=== PATIENT | female | born 1985 | race Caucasian/White ===

== ENCOUNTER 2019-07-14 16:26 | Inpatient (IN) | payer BC, MEDICAID ==
[~2019-07-14] VITALS: Ht 170.2 cm; Wt 66.3 kg
[2019-07-14] MEDS ORDERED: magnesium hydroxide 30ml (MOM) UD suspension PO PRN (23:25)
[2019-07-14] MEDS ORDERED: acetaminophen 325mg tablet PO PRN ×2 (23:25)
[2019-07-14] MEDS ORDERED: mag hydrox/Alum hydrox/simeth 30ml oral suspension PO PRN (23:25)
[2019-07-14] MEDS ORDERED: loperamide 2mg capsule PO PRN (23:25)
[2019-07-15] MEDS ORDERED: TEN1T PO (00:43)
[2019-07-15] MEDS ORDERED: GABA600T13 PO ×2 (00:43)
[2019-07-15] MEDS ORDERED: ESCI20TA PO (00:43)
[2019-07-15 01:41] VITALS: BP 126/91
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
[2019-07-15 08:15] VITALS: BP 100/52
[2019-07-15] MEDS: gabapentin 300mg capsule PO SCH (08:38)
[2019-07-15] MEDS: ESCITALOPRAM OXALATE 5 MG TABLET PO SCH (08:40)
[2019-07-15] MEDS: nicotine 21mg patch - 24 hr TD SCH (08:42)
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
[2019-07-15 20:00] VITALS: BP 118/61
[2019-07-15] MEDS ORDERED: prazosin 1mg capsule PO SCH (21:00)
[2019-07-15] MEDS ORDERED: guanFACINE 1 mg tablet PO SCH (21:00)
[2019-07-15] MEDS: gabapentin 400mg capsule PO SCH (21:14)
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
[2019-07-16] MEDS: LORazepam 1 MG tablet PO PRN ×2 (05:29→13:32)
[2019-07-16] MEDS: ESCITALOPRAM OXALATE 5 MG TABLET PO SCH (08:46)
[2019-07-16] MEDS: nicotine 21mg patch - 24 hr TD SCH (08:47)
[2019-07-16] MEDS: gabapentin 300mg capsule PO SCH (08:51)
[2019-07-16 10:00] LABS: BASOPHILS % (AUTO) 0.8 % (0-1); EOSINOPHILS # (AUTO) 0.1 X10'3 (0-0.9); EOSINOPHILS % (AUTO) 2.2 % (0-6); HEMOGLOBIN 9.2 g/dl (12.0-16.0); LYMPHOCYTES # (AUTO) 1.2 X10'3 (1.1-4.8); LYMPHOCYTES % (AUTO) 26.4 % (21-51); MEAN CORPUSCULAR HEMOGLOBIN 32.1 PG (27.0-31.0); MEAN CORPUSCULAR VOLUME 94.2 FL (78-98); MEAN PLATELET VOLUME 9.7 FL (7.4-10.4); MONOCYTES # (AUTO) 0.4 X10'3 (0-0.9); MONOCYTES % (AUTO) 8.9 % (2-12); NEUTROPHILS # (AUTO) 2.9 X10'3 (1.8-7.7); NEUTROPHILS % (AUTO) 61.7 % (42-75); PLATELET COUNT 216 X10'3 (140-440); RED BLOOD COUNT 2.87 X10'6 (4.20-5.60); RED CELL DISTRIBUTION WIDTH 13.2 % (11.5-14.5); WHITE BLOOD COUNT 4.7 X10'3 (4.5-11.0)
[2019-07-16 10:24] LABS: ALANINE AMINOTRANSFERASE 11 U/L (12-78); ALBUMIN 3.5 G/DL (3.4-5.0); ALBUMIN/GLOBULIN RATIO 1.1 (1.1-1.5); ALKALINE PHOSPHATASE 58 IU/L (46-116); ANION GAP 6 (8-16); ASPARTATE AMINO TRANSFERASE 8 U/L (10-37); BILIRUBIN,TOTAL 0.2 MG/DL (0.1-1.0); BLOOD UREA NITROGEN 17 MG/DL (7-18); CALCIUM 8.9 MG/DL (8.5-10.1); CHLORIDE 108 MMOL/L (99-107); CHOL/HDL RATIO 3.1 (0.00-4.99); CHOLESTEROL 141 MG/DL (0-200); CREATININE 0.85 MG/DL (0.40-0.90); GLUCOSE 100 MG/DL (70-104); HDL CHOLESTEROL 46 MG/DL (35-60); LDL CHOLESTEROL 86 MG/DL (50-100); POTASSIUM 3.9 MMOL/L (3.5-5.1); SODIUM 144 MMOL/L (135-145); TOTAL CARBON DIOXIDE 29.8 MMOL/L (24-32); TOTAL PROTEIN 6.8 G/DL (6.4-8.2); TRIGLYCERIDES 59 MG/DL (20-135); eGFR 76 ML/MIN
--- NOTE | 2019-07-16 14:36 | NUR ---
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 per request from treatment team. Provided psycho ed on trauma therapies available as well as emotional regulation resources. Plan= pt was open to meeting individually tomorrow. Continue to collaborate with treatment team and support pt. Lisa PERRY
--- NOTE | 2019-07-16 15:01 | NUR ---
Met with Ct to complete Psychosocial Assessment. Ct lives in [place] and has an apartment there. Galley Boy assisted Ct with using her phone to pay rent on-line yesterday. Ct is connected to a therapist at [facility]stance Use program. VICKY Gil Addendum: 07/16/19 at 1503 by Brea Gonzalez SS Amended: Links added.
[2019-07-16] MEDS: hydrOXYzine 25 MG tablet PO PRN (16:51)
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
[2019-07-16 20:00] VITALS: BP 101/64
[2019-07-16] MEDS ORDERED: prazosin 1mg capsule PO SCH (21:00)
[2019-07-16] MEDS: gabapentin 400mg capsule PO SCH (21:51)
[2019-07-16 22:20] VITALS: BP 119/70
[2019-07-17] MEDS: LORazepam 1 MG tablet PO PRN ×3 (01:38→17:34)
[2019-07-17] MEDS: NICOTINE POLACRILEX 2 MG LOZENGE MM PRN ×2 (02:25→09:28)
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
[2019-07-17 08:00] VITALS: BP 110/69
[2019-07-17] MEDS: gabapentin 300mg capsule PO SCH (08:50)
[2019-07-17] MEDS: ESCITALOPRAM OXALATE 5 MG TABLET PO SCH (08:50)
[2019-07-17] MEDS: nicotine 21mg patch - 24 hr TD SCH (08:51)
--- NOTE | 2019-07-17 09:19 | NUR ---
propeller layout worker 1:1 The undersigned clinician met individually with pt. Intervention= Attuned empathic listening using bilateral sound and resource eye position. Pt. reports slight reduction in her emotional distress from an 8 to a 6 / pt reports emotion=fear felt in chest. Plan= continue to collaborate with treatment team and support pt. Lisa PERRY
[2019-07-17] MEDS: hydrOXYzine 25 MG tablet PO PRN (12:49)
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
[2019-07-17 20:00] VITALS: BP 90/58
[2019-07-17] MEDS: prazosin 1mg capsule PO SCH (21:00)
[2019-07-17] MEDS: gabapentin 400mg capsule PO SCH (21:04)
[2019-07-18] MEDS: LORazepam 1 MG tablet PO PRN ×2 (03:36→19:28)
[2019-07-18] MEDS: NICOTINE POLACRILEX 2 MG LOZENGE MM PRN ×4 (03:52→20:30)
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
[2019-07-18] MEDS: gabapentin 300mg capsule PO SCH (07:59)
[2019-07-18 08:00] VITALS: BP 105/63
[2019-07-18] MEDS: nicotine 21mg patch - 24 hr TD SCH (08:00)
[2019-07-18] MEDS: ESCITALOPRAM OXALATE 5 MG TABLET PO SCH (08:00)
[2019-07-18] MEDS: hydrOXYzine 25 MG tablet PO PRN (08:14)
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
[2019-07-18 20:00] VITALS: BP 115/62
[2019-07-18] MEDS: gabapentin 400mg capsule PO SCH (20:35)
[2019-07-18] MEDS: prazosin 1mg capsule PO SCH (20:36)
[2019-07-19] MEDS: NICOTINE POLACRILEX 2 MG LOZENGE MM PRN (01:40)
[2019-07-19] MEDS: LORazepam 1 MG tablet PO PRN ×2 (01:40→10:08)
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
[2019-07-19] MEDS: ESCITALOPRAM OXALATE 5 MG TABLET PO SCH (07:38)
[2019-07-19] MEDS: gabapentin 300mg capsule PO SCH (07:39)
[2019-07-19] MEDS: nicotine 21mg patch - 24 hr TD SCH (07:40)
[2019-07-19 08:10] VITALS: BP 105/67
--- NOTE | 2019-07-19 10:21 | NUR ---
Initial: Pt PO 75-100% avg regular meals meeting needs. LBM 07/14; JHONATHAN d/w RN regarding routine bowel care per MD approval. Will continue to monitor. Rec: 1. continue regular diet 2. routine bowel care 3. wt per rx Addendum: 07/19/19 at 1021 [address] De Jesus [address] Amended: Links added.
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
[2019-07-19 19:54] VITALS: BP 109/63
[2019-07-19] MEDS: docusate sod 100mg capsule PO SCH (20:08)
[2019-07-19] MEDS: prazosin 1mg capsule PO SCH (20:08)
[2019-07-19] MEDS: gabapentin 400mg capsule PO SCH (20:08)
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
[2019-07-20] MEDS: LORazepam 1 MG tablet PO PRN ×3 (01:17→20:54)
[2019-07-20 07:30] VITALS: BP 107/71
[2019-07-20] MEDS: gabapentin 300mg capsule PO SCH (08:00)
[2019-07-20] MEDS: docusate sod 100mg capsule PO SCH ×2 (08:00→20:00)
[2019-07-20] MEDS: nicotine 21mg patch - 24 hr TD SCH (08:20)
[2019-07-20] MEDS: ESCITALOPRAM OXALATE 5 MG TABLET PO SCH (09:02)
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
[2019-07-20] MEDS: prazosin 1mg capsule PO SCH (20:21)
[2019-07-20] MEDS: gabapentin 400mg capsule PO SCH ×2 (20:21→20:54)
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
[2019-07-21 08:00] VITALS: BP 107/67
[2019-07-21] MEDS: docusate sod 100mg capsule PO SCH ×2 (08:00→20:27)
[2019-07-21] MEDS: nicotine 21mg patch - 24 hr TD SCH (08:17)
[2019-07-21] MEDS: gabapentin 300mg capsule PO SCH (08:17)
[2019-07-21] MEDS: ESCITALOPRAM OXALATE 5 MG TABLET PO SCH (08:39)
[2019-07-21] MEDS: LORazepam 1 MG tablet PO PRN ×2 (09:57→20:27)
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
[2019-07-21 19:42] VITALS: BP 109/61
[2019-07-21] MEDS: prazosin 1mg capsule PO SCH (20:00)
[2019-07-21] MEDS: gabapentin 400mg capsule PO SCH (20:27)
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
[2019-07-22] MEDS: LORazepam 1 MG tablet PO PRN ×3 (02:34→22:02)
[2019-07-22] MEDS: docusate sod 100mg capsule PO SCH ×2 (08:16→20:00)
[2019-07-22] MEDS: nicotine 21mg patch - 24 hr TD SCH (08:18)
[2019-07-22] MEDS: gabapentin 300mg capsule PO SCH (08:19)
[2019-07-22] MEDS: ESCITALOPRAM OXALATE 5 MG TABLET PO SCH (08:24)
[2019-07-22] MEDS: NICOTINE POLACRILEX 2 MG LOZENGE MM PRN (08:24)
[2019-07-22 08:26] VITALS: BP 105/68
--- NOTE | 2019-07-22 12:07 | NUR ---
Discharge Planning Called [facility] to schedule Ct's follow up appt. She has an appt with Clinician, Stanley Saleem and Dr Burgos on 07/28/19 at [address] can get transport from [facility], ph# [phone]. VICKY Gil
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
[2019-07-22 20:03] VITALS: BP 116/69
[2019-07-22] MEDS: prazosin 1mg capsule PO SCH (21:07)
[2019-07-22] MEDS: gabapentin 400mg capsule PO SCH (21:08)
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
[2019-07-23] MEDS: LORazepam 1 MG tablet PO PRN ×2 (03:54→21:21)
[2019-07-23 08:00] VITALS: BP 108/67
[2019-07-23] MEDS: docusate sod 100mg capsule PO SCH ×2 (08:00→20:00)
[2019-07-23] MEDS: nicotine 21mg patch - 24 hr TD SCH (08:40)
[2019-07-23] MEDS: gabapentin 300mg capsule PO SCH (08:40)
[2019-07-23] MEDS: ESCITALOPRAM OXALATE 5 MG TABLET PO SCH (08:41)
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
[2019-07-23 20:00] VITALS: BP 114/70
[2019-07-23] MEDS: gabapentin 400mg capsule PO SCH (20:56)
[2019-07-23] MEDS: prazosin 1mg capsule PO SCH (20:57)
[2019-07-23] MEDS ORDERED: LORazepam 1 MG tablet PO PRN (21:55)
[2019-07-23] MEDS: hydrOXYzine 25 MG tablet PO PRN (22:57)
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
[2019-07-24 08:00] VITALS: BP 96/57
[2019-07-24] MEDS: docusate sod 100mg capsule PO SCH ×2 (08:00→08:28)
[2019-07-24] MEDS: nicotine 21mg patch - 24 hr TD SCH (08:25)
[2019-07-24] MEDS: gabapentin 300mg capsule PO SCH (08:27)
[2019-07-24] MEDS: ESCITALOPRAM OXALATE 5 MG TABLET PO SCH (08:28)
[2019-07-24] MEDS ORDERED: PRAZ1CAP5 PO (15:00)
[2019-07-24] MEDS ORDERED: GABA300C PO (15:00)
[2019-07-24] MEDS ORDERED: ESCI5TAB PO (15:00)
[2019-07-24] MEDS ORDERED: NICO-687 TD (15:00)
[2019-07-24] MEDS ORDERED: GABA-534 PO (15:00)
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
[2019-07-24 20:01] VITALS: BP 104/74
[2019-07-24] MEDS ORDERED: prazosin 1mg capsule PO SCH (21:00)
--- NOTE | 2019-07-25 00:24 | NUR ---
Discharge Note: Patient in good spirits at change of shift standing in her doorway. She reports waiting for her ride. Discharge paperwork and all belongings inventoried on day shift. Patients vitals obtained and are stable. When her ride arrived all her belongings are gathered and returned to her. Patient ambulates off the unit and is escorted to her ride by BEATA Hanson and a security ambassador. Her affect was cheerful and she reported feeling ready to be discharged.
== END 2019-07-24 18:45 | disposition home or self-care (01) | DRG 751 ==
LOC: ADULT MH 16:26
PROVIDERS: ADMIT Psychiatry & Neurology Psychiatry; ATTEND Psychiatry & Neurology Psychiatry
DX: F33.2 Major depressive disorder, recurrent severe without psychotic features (principal); F10.10 Alcohol abuse, uncomplicated; F17.210 Nicotine dependence, cigarettes, uncomplicated; F43.12 Post-traumatic stress disorder, chronic; F60.3 Borderline personality disorder; W26.8XXA Contact with other sharp object(s), not elsewhere classified, initial encounter; Z79.899 Other long term (current) drug therapy; Z91.410 Personal history of adult physical and sexual abuse; Z91.5 Personal history of self-harm; Y92.89 Other specified places as the place of occurrence of the external cause; Z71.6 Tobacco abuse counseling; Z71.41 Alcohol abuse counseling and surveillance of alcoholic
CPT/HCPCS: 36415; 80053; 80061; 83036; 84443; 85025; 87081; 99285; Z7610